=== PATIENT | male | born 1930 | race Caucasian/White ===

== ENCOUNTER 2019-11-29 16:23 | Inpatient (IN) | payer MEDICARE, BC ==
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
[2019-11-29 16:58] LABS: ABS Lymphocytes 0.8 10^3/ul (1.0-4.8); ABS Monocytes 0.6 10^3/ul (0-0.8); ABS Neutrophils 7.5 10^3/ul (1.5-7.7); Eosinophil % 0.1 %; Hematocrit 41 % (42-52); Hemoglobin 14.4 g/dL (14.0-18.0); Lymphocyte % 8.9 %; Mean Corpuscular HGB Conc 35 g/dL (31-36); Mean Corpuscular Hemoglobin 31 pg (27-31); Mean Corpuscular Volume 87 fL (80-94); Mean Platelet Volume 7.5 fL (7.4-10.4); Platelet Count 120 10^3/uL (150-450); Red Cell Distribution Width 14 % (10-15); White Blood Count 8.8 10^3/uL (3.5-10.8)
[2019-11-29 17:26] LABS: ALT 37 U/L (7-52); AST 65 U/L (13-39); Albumin 3.9 g/dL (3.2-5.2); Albumin/Globulin Ratio 1.2 (1-3); Alkaline Phosphatase 139 U/L (34-104); Anion Gap 8 mmol/L (2-11); BUN/Creatinine Ratio 22.6 (8-20); Blood Urea Nitrogen 21 mg/dL (6-24); CO2 Carbon Dioxide 27 mmol/L (22-32); Calcium 9.7 mg/dL (8.6-10.3); Chloride 101 mmol/L (101-111); EGFR African American 92.8 (>60); EGFR Non-African American 76.7 (>60); Globulin 3.3 g/dL (2-4); Glucose 130 mg/dL (70-100); Potassium 3.9 mmol/L (3.5-5.0); Sodium 136 mmol/L (135-145); Total Protein 7.2 g/dL (6.4-8.9)
[2019-11-29 17:36] LABS: Alcohol < 10 mg/dL (<10)
[2019-11-29 17:49] LABS: Troponin I 0.05 ng/mL (<0.03)
[2019-11-29 18:14] LABS: TSH (Thyroid Stimulating Horm) 1.36 mcIU/mL (0.34-5.60)
[2019-11-29] MEDS ORDERED: Ketorolac INJ* 30 MG/ML 1 ML VIAL IV PUSH ONE (18:56)
[2019-11-29] MEDS ORDERED: oxyCODONE/Acetamin 5/325 MG* TAB PO ONE (18:56)
[2019-11-29 19:59] LABS: Urine Appearance Clear; Urine Bilirubin Negative (Negative); Urine Blood Negative (Negative); Urine Color Yellow; Urine Glucose Negative (Negative); Urine Ketones 1+ (Negative); Urine Nitrite Negative (Negative); Urine Protein Negative (Negative); Urine Specific Gravity 1.025 (1.010-1.030); Urine Urobilinogen Negative (Negative)
[2019-11-29 20:55] LABS: Troponin I 0.06 ng/mL (<0.03)
[2019-11-29] MEDS ORDERED: Famotidine TAB* 20 MG PO PRN (21:50)
[2019-11-29] MEDS ORDERED: Meclizine TAB* 12.5 MG PO PRN (21:50)
[2019-11-29] MEDS ORDERED: Enoxaparin(*) 40 MG/0.4 ML SYR SUBCUT SCH (22:00)
--- NOTE | 2019-11-29 23:38 | HP ---
History of Present Illness - History of Present Illness Reason for Visit: Syncope and collapse, Fall History of Present Illness: 89 yo Male with PMHx significant for HTN, Gout, legal blindness presented to day to the ED with CC of Syncope and Fall in the bathroom this AM. He said he knew when he went to the bathroom but can't remember falling but found himself on the floor with pain on the right side. He has no recollection of falling or how long he was there. reported patient on the floor of the bathroom, talking, awake and alert but couldn't ambulate. Did not notice any focal weakness, no foaming in the mouth, no urinary incontinence or saddle anesthesia. Patient only reported right sided pain on the ribs and now in the ED noticed right hand swelling, redness and pain on palpation. Denied chest pain , neck pain, abdominal pain, diaphoresis, nausea vomiting, fever. Said he is compliant with his medications. He also denied headache. CT brain scan no intra- cranial pathology noted. CXR revealed no cardiopulmonary pathology, Right hand X -ray revealed Osteopenia, Osteoarthritis but no acute osseous injury. EKG-Afib with tachycardia at 105 BPM, no ST changes. - Past Medical History Cardiac: HTN COMMUNICATIONS INTERN: Other - Legally blind bilateral eyes Rheumatologic: Gout - Past Surgical History Past Surgical History: Hernia Repair, Other - Pilonidal cyst, Right Ankle surgery - Past Social History Smoke: No Alcohol: Rare Drugs: None Lives: With Family Domestic Violence: Negative Review of Systems - Measurements Intake and Output: Intake and Output Last 24 Hours 11/27/19 11/28/19 11/29/19 11/30/19 06:59 06:59 06:59 06:59 Weight 112.491 kg - Review of Systems Constitutional Symptoms: Positive: Fatigue, Unexplained Falls Negative: Fever Dermatology: Positive: Normal HEENT: Positive: Normal Eyes: Positive: Other - 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) Thyroid: Negative: Cold Intolerance, Sweatiness, Tremor, Palpitations Pulmonary: Positive: Normal Cardiology: Positive: Syncope Negative: Shortness of Breath, Palpitations Gastroenterology: Positive: Normal Genital - Urinary: Positive: Normal Musculoskeletal: Positive: Arthritis Endocrinology: Negative: Diabetes Mellitus, Hyperglycemia, Polydipsia, Polyuria Hematologic/Lymphatic: Negative: Anemia Neurology: Negative: Headache, Change in Speech Psychiatry: Positive: Normal Objective Active Medications: Aspirin (Aspirin Tab*) 325 mg PO DAILY [facility] Enoxaparin Sodium (Lovenox(*)) 40 mg SUBCUT Q24H [facility] Famotidine (Pepcid Tab*) 20 mg PO DAILY PRN; Protocol PRN Reason: INDIGESTION Losartan Potassium (Cozaar Tab*) 25 mg PO DAILY [facility] Meclizine HCl (Antivert Tab*) 12.5 mg PO TID PRN PRN Reason: DIZZINESS Metoprolol Succinate (Toprol Xl Tab*) 12.5 mg PO DAILY [facility] Terazosin HCl (Hytrin Cap*) 5 mg PO BEDTIME [facility] Vital Signs - 8 hr 11/29/19 11/29/19 11/29/19 16:28 16:36 16:37 Temperature 99 F Pulse Rate 101 92 102 Respiratory 16 20 13 Rate Blood Pressure 168/99 168/99 (mmHg) O2 Sat by Pulse 96 95 93 Oximetry 11/29/19 11/29/19 11/29/19 17:32 17:40 17:59 Temperature Pulse Rate 105 87 73 Respiratory Rate Blood Pressure 161/103 143/97 (mmHg) O2 Sat by Pulse 93 93 95 Oximetry 11/29/19 11/29/19 11/29/19 18:00 18:29 18:58 Temperature Pulse Rate 79 87 97 Respiratory Rate Blood Pressure 143/80 147/101 (mmHg) O2 Sat by Pulse 94 92 94 Oximetry 11/29/19 11/29/19 11/29/19 19:00 19:28 19:37 Temperature Pulse Rate 100 101 Respiratory 21 16 Rate Blood Pressure 148/82 (mmHg) O2 Sat by Pulse 93 91 Oximetry 11/29/19 11/29/19 11/29/19 19:58 20:01 20:28 Temperature Pulse Rate Respiratory 18 13 18 Rate Blood Pressure 132/91 110/72 (mmHg) O2 Sat by Pulse Oximetry 11/29/19 11/29/19 11/29/19 20:58 21:01 21:08 Temperature Pulse Rate Respiratory 18 9 15 Rate Blood Pressure 159/114 121/76 (mmHg) O2 Sat by Pulse Oximetry 11/29/19 11/29/19 11/29/19 21:28 21:58 22:00 Temperature Pulse Rate Respiratory 26 17 17 Rate Blood Pressure 106/70 112/75 (mmHg) O2 Sat by Pulse Oximetry 11/29/19 11/29/19 11/29/19 22:10 22:12 22:28 Temperature 98.4 F Pulse Rate 68 67 Respiratory 16 17 23 Rate Blood Pressure 125/66 125/66 114/66 (mmHg) O2 Sat by Pulse 93 96 Oximetry 11/29/19 11/29/19 22:58 23:00 Temperature 98.4 F Pulse Rate 68 Respiratory 18 17 Rate Blood Pressure 104/75 125/66 (mmHg) O2 Sat by Pulse 93 Oximetry Eyes: No Scleral Icterus Ears/Nose/Mouth/Throat: Clear Oropharnyx, Mucous Membranes Moist Neck: NL Appearance and Movements; NL JVP, Trachea Midline, No Thyroid Enlargement, Masses Respiratory: Symmetrical Chest Expansion and Respiratory Effort, Clear to Auscultation Cardiovascular: NL Sounds; No Murmurs; No JVD, RRR, No Edema Abdominal: NL Sounds; No Tenderness; No Distention, No Hepatosplenomegaly Lymphatic: No Cervical Adenopathy Extremities: No Clubbing, Cyanosis Skin: No Rash or Ulcers Neurological: Alert and Oriented x 3, NL Muscle Strength and Tone Result Diagrams: 11/30/19 05:32 11/29/19 16:49 Assess/Plan/Problems-Billing Assessment: 89 yo Male with PMHx significant for HTN, Gout and legally blind presented with: - Patient Problems (1) Syncope and collapse Current Visit: Yes Status: Acute Code(s): R55 - SYNCOPE AND COLLAPSE SNOMED Code(s): 594520244 Comment: Admit to medicine--Telemonitor Monitor and follow up cardiac enymes. Initial trops elevated at 0.05. patient reported no chest pain. EKG showed Afib with HR of 105, no ST changes. Will order Echocardiogram to evaluate further. Nitropaste for chest as needed. Cardiology consult. FU AM labs (2) Fall Current Visit: Yes Status: Acute Comment: Fall precaution. PT eval (3) HTN (hypertension), benign Current Visit: Yes Status: Acute Code(s): I10 - ESSENTIAL (PRIMARY) HYPERTENSION SNOMED Code(s): 39285091 Comment: c/w Home meds Metoprolol, Losartan with holding parameters (4) Legal blindness Current Visit: Yes Status: Acute Code(s): H54.8 - LEGAL BLINDNESS, DEFINED IN [place] SNOMED Code(s): 11385300 Comment: Follow up out patient ophthalmology (5) DVT prophylaxis Current Visit: Yes Status: Acute Code(s): Z29.9 - ENCOUNTER FOR PROPHYLACTIC MEASURES, UNSPECIFIED SNOMED Code(s): 950790762 Comment: Alfredo (6) Full code status Current Visit: Yes Status: Acute Code(s): Z78.9 - OTHER SPECIFIED HEALTH STATUS SNOMED Code(s): 418802346
[2019-11-30] MEDS: oxyCODONE/Acetamin 5/325 MG* TAB PO PRN ×2 (00:11→09:22)
[2019-11-30 05:39] LABS: ABS Eosinophils 0.2 10^3/ul (0-0.6); ABS Lymphocytes 1.1 10^3/ul (1.0-4.8); ABS Monocytes 0.5 10^3/ul (0-0.8); ABS Neutrophils 4.9 10^3/ul (1.5-7.7); Eosinophil % 2.6 %; Hematocrit 39 % (42-52); Hemoglobin 13.2 g/dL (14.0-18.0); Lymphocyte % 16.6 %; Mean Corpuscular HGB Conc 34 g/dL (31-36); Mean Corpuscular Hemoglobin 30 pg (27-31); Mean Corpuscular Volume 88 fL (80-94); Mean Platelet Volume 7.4 fL (7.4-10.4); Platelet Count 115 10^3/uL (150-450); Red Blood Count 4.37 10^6 /uL (4.18-5.48); Red Cell Distribution Width 15 % (10-15); White Blood Count 6.7 10^3/uL (3.5-10.8)
[2019-11-30 06:00] LABS: Magnesium 2.1 mg/dL (1.9-2.7)
[2019-11-30 06:08] LABS: Troponin I 0.05 ng/mL (<0.03)
[2019-11-30] MEDS ORDERED: Aspirin TAB* 325 MG PO SCH (09:00)
[2019-11-30] MEDS ORDERED: Influenza VAC *QUAD* 2019-20* 0.5 ML SYRINGE IM ONE (09:00)
[2019-11-30] MEDS: Metoprolol Succinate XL TAB* 25 MG PO SCH (09:18)
[2019-11-30] MEDS: Losartan TAB* 25 MG PO SCH (09:22)
[2019-11-30] MEDS ORDERED: Perflutren Lipid Microsphere* 3 ML VIAL ONE (09:49)
--- NOTE | 2019-11-30 11:04 | ECHO ---
*[facility]* [place] [address] Fax #: [phone] Transthoracic Echocardiogram Patient: Marcelo Diane : 1930 Study Date: 11/30/2019 Age: 89 Gender: M HR: 82 bpm Height: 70 in /177.8 cm BSA: 2.29 m^2 Weight: 249.5 lb /113.4 kg BMI: 35.9 kg/m^2 *Recruiter: * Sugey Sánchez [facility] *Referring Physician: * Ganesh Abrams *Reading Physician: * Ping Foote MD Indications: Syncope. History: Risk factors: Hypertension. Blindness. Conclusions Summary: - Left ventricle: The cavity size is at the lower limits of normal. Wall thickness is mildly increased. Systolic function is normal. The estimated ejection fraction is 60-65%. Doppler parameters are consistent with abnormal left ventricular relaxation (grade 1 diastolic dysfunction). - Right ventricle: The cavity size is dilated on apical measurments. Systolic function is normal. - Mitral valve: There is trace regurgitation. - Aortic valve: The valve is trileaflet. The leaflets are mildly thickened and mildly calcified. - Tricuspid valve: There is trace regurgitation. - Aorta: The ascending aorta internal dimension in the A-P direction, maximal systolic dimension is 4.0 cm. - Ascending aorta: The ascending aorta is mildly dilated. - Pulmonary arteries: Systolic pressure can not be accurately estimated. - No prior echocardiogram to compare. Study data: Transthoracic echocardiogram. Procedure: Transthoracic echocardiography was performed. Image quality was suboptimal. The study was technically limited due to restricted patient mobility and body habitus. Intravenous Definity , 2 mlswas administered. Complete 2D, spectral Doppler, and color flow Doppler. Location: Bedside. Patient status: Inpatient. Patient room number: 450-02. Rhythm: Normal sinus rhythm with PAC's. Findings Left ventricle: The cavity size is at the lower limits of normal. Wall thickness is mildly increased. Systolic function is normal. The estimated ejection fraction is 60-65%. Wall motion is normal; there are no regional wall motion abnormalities. Doppler parameters are consistent with abnormal left ventricular relaxation (grade 1 diastolic dysfunction). Right ventricle: The cavity size is dilated. Systolic function is normal. Left atrium: The atrium is mildly dilated. Right atrium: The atrium is normal in size. Mitral valve: The leaflets are mildly thickened. There is no evidence of stenosis. There is trace regurgitation. Aortic valve: The valve is trileaflet. The leaflets are mildly thickened and mildly calcified. Normal valve function. Cusp separation is normal. There is no evidence of stenosis. There is no significant regurgitation. Tricuspid valve: The leaflets are normal thickness. There is no evidence of stenosis. There is trace regurgitation. Pulmonic valve: The leaflets are normal thickness. There is no evidence of stenosis. There is trace to mild regurgitation. Aorta: Aortic root: The aortic root is mildly dilated. Ascending aorta: The ascending aorta is mildly dilated. Aortic arch: The aortic arch is appears normal. Pericardium: A prominent pericardial fat pad is present. There is no significant pericardial effusion. Pulmonary arteries: The main pulmonary artery is normal-sized. Systolic pressure can not be accurately estimated. Systemic veins: Inferior vena cava: Poorly visualized. Measurements Left ventricle Value Ref Right atrium continued Value Ref NAVDEEP, LAX (L) 4.1 cm 4.2 - 5.8 ML dim, ES, A4C 4.0 cm 2.6 - 4.4 ESD, LAX 2.5 cm 2.5 - 4.0 Estimated RAP 8 mm Hg --------- FS, LAX 39 % 25 - 43 PW, ED, LAX (H) 1.1 cm 0.6 - 1.0 Aortic valve Value Ref FS 39 % 25 - 43 Latha diam, ED 2.5 cm --------- Mid-wall FS 14 % Peak v, S 1.4 m/sec --------- PW, ED (H) 1.1 cm 0.6 - 1.0 VTI, S 24.5 cm --------- E', lat latha, TDI (L) 6.6 cm/sec >=10.0 Mean grad, S 4.0 mm Hg -- ------- E/e', lat latha, 11 Peak grad, S 7.0 mm Hg ----- ---- TDI LVOT/AV, VTI ratio 0.73 --------- E', med latha, TDI (L) 5.5 cm/sec >=7.0 E/e', med latha, 13 Mitral valve Value Ref TDI Peak E 0.7 m/sec --------- E', avg, TDI 6.1 cm/sec Peak A 1.22 m/sec ----- ---- E/e', avg, TDI 12 <=14 Decel time 254 ms -- ------- Peak E/A ratio 0.6 --------- LVOT Value Ref Peak jagdeep, S 0.99 m/sec Pulmonic valve Value Ref VTI, S 18.0 cm Peak v, S 1.13 m/sec --------- Mean grad, S 2 mm Hg Peak grad, S 5.0 mm Hg --------- NC v, ED 1.13 m/sec --------- Ventricular septum Value Ref NC grad, ED 5 mm Hg --------- IVS, ED (H) 1.2 cm 0.6 - 1.0 Aortic root Value Ref Right ventricle Value Ref Root diam 3.8 cm <4.4 NAVDEEP, LAX 3.3 cm NAVDEEP minor ax, A4C (H) 4.5 cm 1.9 - 3.5 Ascending aorta Value Ref mid AAo AP diam, S 4.0 cm --------- Left atrium Value Ref Aortic arch Value Ref AP dim, ES 3.60 cm 3.00 - Arch diam 2.7 cm --------- 4.00 ML dim, A4C 5.0 cm Decending aorta Value Ref SI dim, A4C 6.6 cm Lindsay peak jagdeep 0.6 m/sec --------- Vol/bsa, ES, 1-p 37 ml/m^2 12 - 37 A4C Vol/bsa, ES, A/L 28 ml/m^2 16 - 34 Right atrium Value Ref SI dim, ES 5.1 cm 3.4 - 5.3 Legend: (L) and (H) ashley values outside specified reference range. Prepared and electronically signed by Ping Foote MD 11/30/2019 11:04
[2019-11-30 12:51] LABS: Troponin I 0.04 ng/mL (<0.03)
[2019-11-30] MEDS: Acetaminophen TAB* 325 MG PO SCH ×2 (15:56→23:44)
--- NOTE | 2019-11-30 18:43 | PN ---
Subjective Date of Service: 11/30/19 Interval History: Sitting up in chair, NAD. Guarding R side. C/o pain to R side/flank area. Denies any headache, CP, SOB, abdominal discomfort, difficulty urinating, unusual numbness/tingling. Objective Active Medications: Acetaminophen (Tylenol Tab*) 975 mg PO Q8H [facility] Last Admin: 11/30/19 15:56 Dose: 975 mg Aspirin (Aspirin Tab*) 325 mg PO DAILY [facility] Last Admin: 11/30/19 09:22 Dose: 325 mg Enoxaparin Sodium (Lovenox(*)) 40 mg SUBCUT Q24H [facility] Last Admin: 11/30/19 00:11 Dose: 40 mg Famotidine (Pepcid Tab*) 20 mg PO DAILY PRN; Protocol PRN Reason: INDIGESTION Losartan Potassium (Cozaar Tab*) 25 mg PO DAILY [facility] Last Admin: 11/30/19 09:22 Dose: 25 mg Meclizine HCl (Antivert Tab*) 12.5 mg PO TID PRN PRN Reason: DIZZINESS Metoprolol Succinate (Toprol Xl Tab*) 12.5 mg PO DAILY [facility] Last Admin: 11/30/19 09:18 Dose: 12.5 mg Oxycodone HCl (Roxycodone Tab*) 5 mg PO Q4H PRN PRN Reason: PAIN - SEVERE Terazosin HCl (Hytrin Cap*) 5 mg PO BEDTIME [facility] Vital Signs - 8 hr 11/30/19 11/30/19 11/30/19 11:15 11:23 15:15 Temperature 98.4 F 98.5 F Pulse Rate 80 87 Respiratory 20 16 20 Rate Blood Pressure 110/60 101/59 (mmHg) O2 Sat by Pulse 93 92 Oximetry Oxygen Devices in Use Now: None Appearance: sitting up in chair, guarded Eyes: No Scleral Icterus, - - PERRL Ears/Nose/Mouth/Throat: Mucous Membranes Moist Respiratory: Symmetrical Chest Expansion and Respiratory Effort, Clear to Auscultation Cardiovascular: - - HR irregular, S1/S2 present, no murmurs, rubs or gallops noted Abdominal: - - BS throughout, abdomen large distended, non-tender to palpation Extremities: - - 1+ edema BLE Neurological: Alert and Oriented x 3 Nutrition: Taking PO's Result Diagrams: 12/01/19 05:15 12/01/19 05:15 Assess/Plan/Problems-Billing Assessment: 89 yo Male with PMHx significant for HTN, Gout and legally blind presented with c/o syncope and fall. Does not remember passing out, found on floor by his . - Patient Problems (1) Syncope and collapse Current Visit: Yes Status: Acute Code(s): R55 - SYNCOPE AND COLLAPSE SNOMED Code(s): 859272997 Comment: Admit to medicine--Telemonitor. Troponin trended downward. EKG showed Afib with HR of 105, no ST changes. No available documented hx of afib. Echo shows grade 1 diastolic dysfunction but normal systolic function and EF 60- 65% Syncopal episode likely in relation to AFib vs unspecified reflex syncope Continue to monitor (2) Elevated troponin Current Visit: Yes Status: Acute Code(s): R79.89 - OTHER SPECIFIED ABNORMAL FINDINGS OF BLOOD CHEMISTRY SNOMED Code(s): 142007539 Comment: Troponins trended down with last value 0.04. No prior values for comparison. Spoke to pt about Performing chemical nuclear stress and potential further interventions if this test is positive, pt agreed to proceed. - chemical nuclear stress ordered for 11/30 (3) Atrial fibrillation Current Visit: Yes Status: Acute Code(s): I48.91 - UNSPECIFIED ATRIAL FIBRILLATION SNOMED Code(s): 42891750 Comment: HAS-BLED score 2 - moderate risk [id number] score 3 points - moderate to high risk No known hx bleeding/clotting disorders Start eliquis 5mg PO BID tonight (4) HTN (hypertension), benign Current Visit: Yes Status: Acute Code(s): I10 - ESSENTIAL (PRIMARY) HYPERTENSION SNOMED Code(s): 89217747 Comment: c/w Home meds Metoprolol, Losartan with holding parameters (5) Legal blindness Current Visit: Yes Status: Acute Code(s): H54.8 - LEGAL BLINDNESS, DEFINED IN [place] SNOMED Code(s): 77431923 Comment: Follow up out patient ophthalmology (6) Elevated liver enzymes Current Visit: Yes Status: Acute Code(s): R74.8 - ABNORMAL LEVELS OF OTHER SERUM ENZYMES SNOMED Code(s): 559213955 Comment: and elevated bilirubin. It is reasonable to suspect fatty liver as a causative factor. Pt can follow up outpatient about these findings. (7) Full code status Current Visit: Yes Status: Acute Code(s): Z78.9 - OTHER SPECIFIED HEALTH STATUS SNOMED Code(s): 653325765 (8) DVT prophylaxis Current Visit: Yes Status: Acute Code(s): Z29.9 - ENCOUNTER FOR PROPHYLACTIC MEASURES, UNSPECIFIED SNOMED Code(s): 000393405 Comment: stop lovenox start eliquis Status and Disposition: status: stable disposition: 4S Attending: Daisy Wong
[2019-11-30] MEDS: oxyCODONE TAB* 5 MG TAB PO PRN (21:32)
[2019-11-30] MEDS: Apixaban* 5 MG TAB PO SCH (21:32)
[2019-11-30] MEDS: Terazosin CAP* 5 MG PO SCH (21:33)
[2019-11-30] MEDS: guaiFENesin 100 mg/5 ml LIQ unit dose cup PO PRN (22:35)
[2019-12-01] MEDS ORDERED: NS 0.9% 500 ML* 500 ML IV ONE (00:01)
[2019-12-01] MEDS: oxyCODONE TAB* 5 MG TAB PO PRN ×3 (05:13→19:34)
[2019-12-01 05:35] LABS: ABS Eosinophils 0.1 10^3/ul (0-0.6); ABS Lymphocytes 0.9 10^3/ul (1.0-4.8); ABS Monocytes 0.5 10^3/ul (0-0.8); ABS Neutrophils 5.3 10^3/ul (1.5-7.7); Eosinophil % 0.9 %; Hematocrit 37 % (42-52); Hemoglobin 12.9 g/dL (14.0-18.0); Lymphocyte % 13.9 %; Mean Corpuscular HGB Conc 35 g/dL (31-36); Mean Corpuscular Hemoglobin 31 pg (27-31); Mean Corpuscular Volume 88 fL (80-94); Mean Platelet Volume 7.8 fL (7.4-10.4); Platelet Count 105 10^3/uL (150-450); Red Blood Count 4.24 10^6 /uL (4.18-5.48); Red Cell Distribution Width 14 % (10-15); White Blood Count 6.8 10^3/uL (3.5-10.8)
[2019-12-01 05:51] LABS: BUN/Creatinine Ratio 33.3 (8-20); Calcium 8.4 mg/dL (8.6-10.3); EGFR African American 80.7 (>60); EGFR Non-African American 66.7 (>60); Potassium 3.9 mmol/L (3.5-5.0)
[2019-12-01] MEDS: Acetaminophen TAB* 325 MG PO SCH ×3 (07:35→21:47)
[2019-12-01] MEDS: guaiFENesin 100 mg/5 ml LIQ unit dose cup PO PRN ×4 (07:36→21:51)
--- NOTE | 2019-12-01 08:57 | PN ---
Subjective Date of Service: 12/01/19 Interval History: Spoke to pt again about stress testing and he wishes to proceed. States pain to R side and he believes that the scheduled tylenol is helping. Currently denies any fever, chills, headache, CP, SOB, N/V/D, difficulty urinating, numbness/ tingling. Objective Active Medications: Acetaminophen (Tylenol Tab*) 975 mg PO Q8H [facility] Last Admin: 12/01/19 07:35 Dose: 975 mg Apixaban (Eliquis*) 5 mg PO BID [facility] Last Admin: 11/30/19 21:32 Dose: 5 mg Famotidine (Pepcid Tab*) 20 mg PO DAILY PRN; Protocol PRN Reason: INDIGESTION Guaifenesin (Robitussin 100 Mg/5ml Liq) 5 ml PO Q4H PRN PRN Reason: COUGH Last Admin: 12/01/19 07:36 Dose: 5 ml Losartan Potassium (Cozaar Tab*) 25 mg PO DAILY [facility] Last Admin: 11/30/19 09:22 Dose: 25 mg Meclizine HCl (Antivert Tab*) 12.5 mg PO TID PRN PRN Reason: DIZZINESS Metoprolol Succinate (Toprol Xl Tab*) 12.5 mg PO DAILY [facility] Last Admin: 11/30/19 09:18 Dose: 12.5 mg Oxycodone HCl (Roxycodone Tab*) 5 mg PO Q4H PRN PRN Reason: PAIN - SEVERE Last Admin: 12/01/19 05:13 Dose: 5 mg Terazosin HCl (Hytrin Cap*) 5 mg PO BEDTIME [facility] Last Admin: 11/30/19 21:33 Dose: 5 mg Vital Signs - 8 hr 12/01/19 12/01/19 12/01/19 02:28 05:13 08:09 Temperature 97.8 F Pulse Rate 96 Respiratory 20 16 20 Rate Blood Pressure 127/65 (mmHg) O2 Sat by Pulse 94 Oximetry Oxygen Devices in Use Now: None Appearance: Laying in bed, NAD, guarding R side Eyes: No Scleral Icterus Ears/Nose/Mouth/Throat: Clear Oropharnyx Respiratory: Symmetrical Chest Expansion and Respiratory Effort, Clear to Auscultation - diminished to BLL Cardiovascular: - - Rate irregular, S1/S2 present, no murmurs, rubs or gallops Abdominal: - - Normoactive BS throuhgout, abdomen large, round, SNT Extremities: - - trace edema BLE, 1+ pitting edema bilateral feet. 1+ pitting edema R hand to bruised area Skin: - - Bruising to R hand and forearm, slightly darkened discoloration of bilateral lower calves Neurological: Alert and Oriented x 3 - showed disorientation when awoken this morning but quickly reoriented, aware of person, place, time, situation, NL Sensation Nutrition: - - NPO awaiting stress testing Result Diagrams: 12/01/19 05:15 12/01/19 05:15 Assess/Plan/Problems-Billing Assessment: 89 yo Male with PMHx significant for HTN, Gout and legally blind presented with c/o syncope and fall. Does not remember passing out, found on floor by his . - Patient Problems (1) Syncope and collapse Current Visit: Yes Status: Acute Code(s): R55 - SYNCOPE AND COLLAPSE SNOMED Code(s): 499489461 Comment: Admit to medicine--Telemonitor. Troponin trended downward. EKG showed Afib with HR of 105, no ST changes. No available documented hx of afib. Echo shows grade 1 diastolic dysfunction but normal systolic function and EF 60- 65% Syncopal episode likely in relation to AFib vs unspecified reflex syncope Continue to monitor Pain medication currently scheduled tylenol with oxy 5mg q6hr PRN (2) Elevated troponin Current Visit: Yes Status: Acute Code(s): R79.89 - OTHER SPECIFIED ABNORMAL FINDINGS OF BLOOD CHEMISTRY SNOMED Code(s): 267648393 Comment: Troponins trended down with last value 0.04. No prior values for comparison. Spoke to pt about Performing chemical nuclear stress and potential further interventions if this test is positive, pt agreed to proceed. - chemical nuclear stress ordered for 11/30 - low risk (3) Atrial fibrillation Current Visit: Yes Status: Acute Code(s): I48.91 - UNSPECIFIED ATRIAL FIBRILLATION SNOMED Code(s): 43049513 Comment: HAS-BLED score 2 - moderate risk [id number] score 3 points - moderate to high risk No known hx bleeding/clotting disorders Started on eliquis Noted to be in sinus arrhythmia today with PACs, recently had pauses of approximately 2seconds each - it is reasonable to d/c BB as risks seemingly outweigh benefits at this time and pt was on a lower dosage - EKG ordered - shows sinus arrhythmia with no ST elevations or depressions - if he continues to have pauses or any other irregular activity after the BB wares off then we can get cardiology involved - continue to monitor (4) HTN (hypertension), benign Current Visit: Yes Status: Acute Code(s): I10 - ESSENTIAL (PRIMARY) HYPERTENSION SNOMED Code(s): 94132914 Comment: c/w Losartan with holding parameters BB has been d/c Continue to monitor BPs (5) Legal blindness Current Visit: Yes Status: Acute Code(s): H54.8 - LEGAL BLINDNESS, DEFINED IN [place] SNOMED Code(s): 37376482 Comment: Per report from pt's , the pt had what 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 It is reasonable to suspect fatty liver as a causative factor. Pt can follow up outpatient about these findings. (7) Anemia Current Visit: Yes Status: Acute Code(s): D64.9 - ANEMIA, UNSPECIFIED SNOMED Code(s): 195063645 Comment: slight drop in HH to 12.9/37, was started on eliquis 11/30 Will continue to trend (8) Full code status Current Visit: Yes Status: Acute Code(s): Z78.9 - OTHER SPECIFIED HEALTH STATUS SNOMED Code(s): 150143669 (9) DVT prophylaxis Current Visit: Yes Status: Acute Code(s): Z29.9 - ENCOUNTER FOR PROPHYLACTIC MEASURES, UNSPECIFIED SNOMED Code(s): 804325718 Comment: stop lovenox start eliquis Status and Disposition: status: stable disposition: 4S Attending: Lamberto Garner
[2019-12-01] MEDS: Losartan TAB* 25 MG PO SCH (09:04)
[2019-12-01] MEDS: Metoprolol Succinate XL TAB* 25 MG PO SCH (09:04)
[2019-12-01] MEDS: Apixaban* 5 MG TAB PO SCH ×2 (09:04→21:51)
[2019-12-01] MEDS ORDERED: Regadenoson* 0.4 MG/5 ML SYRINGE ONE (10:53)
[2019-12-01] MEDS ORDERED: Senna TAB 8.6 mg* TAB PO PRN (12:10)
[2019-12-01] MEDS ORDERED: Magnesium Hydroxide LIQ* 30 ML UDC PO ONE (12:10)
[2019-12-01] MEDS ORDERED: Docusate CAP* 100 MG PO PRN (12:10)
[2019-12-01] MEDS ORDERED: Magnesium Hydroxide LIQ* 30 ML UDC PO PRN (12:11)
[2019-12-01] MEDS: Terazosin CAP* 5 MG PO SCH (21:47)
[2019-12-02] MEDS: guaiFENesin 100 mg/5 ml LIQ unit dose cup PO PRN ×3 (03:04→14:26)
[2019-12-02] MEDS: oxyCODONE TAB* 5 MG TAB PO PRN ×2 (03:04→14:26)
[2019-12-02 06:14] LABS: Hematocrit 37 % (42-52); Hemoglobin 12.6 g/dL (14.0-18.0); Mean Corpuscular HGB Conc 34 g/dL (31-36); Mean Corpuscular Hemoglobin 31 pg (27-31); Mean Corpuscular Volume 89 fL (80-94); Mean Platelet Volume 7.9 fL (7.4-10.4); Platelet Count 108 10^3/uL (150-450); Red Blood Count 4.13 10^6 /uL (4.18-5.48); Red Cell Distribution Width 14 % (10-15); White Blood Count 6.2 10^3/uL (3.5-10.8)
[2019-12-02] MEDS: Losartan TAB* 25 MG PO SCH (07:56)
[2019-12-02] MEDS: Acetaminophen TAB* 325 MG PO SCH ×2 (07:56→13:03)
[2019-12-02] MEDS: Apixaban* 5 MG TAB PO SCH (07:56)
[2019-12-02 12:06] VITALS: BP 100/47
--- NOTE | 2019-12-02 13:28 | CONSULT ---
Subjective Date of Service: 12/02/19 Interval History: Admission Date: 11/29/19 Consult 12/02/2019 Service: Hospitalist CC: Fall vs. syncope Reason for consult: EKG findings HPI 89 year old man with a history as below who was found awake in the middle of the night on bathroom floor in pain. He is legally blind. He does not remember how he got there. It is clear if he syncopized. His initial EKG was felt to be atrial fibrillation and he was started on eliquis and metoprolol. On close review, it shows sinus tachycardia with PAC's. He had some benign appearing < 1.5 second SA node exit block on telemetry. He has broke ribs and this painful. He is otherwise currently asymptomatic. He plans to go to a rehab facility. Pmhx: HTN Gout legal blindness - Past Surgical History Past Surgical History: Hernia Repair, Other - Pilonidal cyst, Right Ankle surgery - Past Social History Smoke: No Alcohol: Rare Drugs: None Lives: With Family Allergies Allergy/AdvReac Type Severity Reaction Status Date / Time Penicillins Allergy Unknown Verified 11/29/19 17:28 Reaction Details Medications Active Medications: Acetaminophen (Tylenol Tab*) 975 mg PO Q8H [facility] Last Admin: 12/02/19 13:03 Dose: 975 mg Bisacodyl (Dulcolax Supp*) 10 mg LA ONCE PRN PRN Reason: CONSTIPATION Last Admin: 12/02/19 13:03 Dose: 10 mg Docusate Sodium (Colace Cap*) 100 mg PO BID PRN PRN Reason: CONSTIPATION Last Admin: 12/02/19 07:56 Dose: 100 mg Famotidine (Pepcid Tab*) 20 mg PO DAILY PRN; Protocol PRN Reason: INDIGESTION Guaifenesin (Robitussin 100 Mg/5ml Liq) 5 ml PO Q4H PRN PRN Reason: COUGH Last Admin: 12/02/19 07:55 Dose: 5 ml Losartan Potassium (Cozaar Tab*) 25 mg PO DAILY [facility] Last Admin: 12/02/19 07:56 Dose: 25 mg Magnesium Hydroxide (Milk Of Magnesia Liq*) 30 ml PO BID PRN PRN Reason: CONSTIPATION Last Admin: 12/02/19 07:56 Dose: 30 ml Meclizine HCl (Antivert Tab*) 12.5 mg PO TID PRN PRN Reason: DIZZINESS Oxycodone HCl (Roxycodone Tab*) 5 mg PO Q6H PRN PRN Reason: PAIN - SEVERE Last Admin: 12/02/19 03:04 Dose: 5 mg Senna (Senokot 8.6 Mg Tab*) 1 tab PO BEDTIME PRN PRN Reason: CONSTIPATION Terazosin HCl (Hytrin Cap*) 5 mg PO BEDTIME [facility] Last Admin: 12/01/19 21:47 Dose: 5 mg Home Medications: Allopurinol TAB* [Zyloprim 100 MG TAB*] 100 mg PO DAILY 11/29/19 [History Confirmed 11/29/19] Losartan TAB* [Cozaar TAB*] 25 mg PO DAILY 11/29/19 [History Confirmed 11/29/19] Meclizine TAB* [Antivert 12.5 TAB*] 12.5 mg PO TID PRN 11/29/19 [History Confirmed 11/29/19] Ranitidine TAB (NF) [Zantac TAB (NF)] 150 mg PO DAILY PRN 11/29/19 [History Confirmed 11/29/19] Terazosin CAP* [Hytrin CAP 5 MG*] 5 mg PO BEDTIME 11/29/19 [History Confirmed ] Vit C/E/Zn/Coppr/Lutein/Zeaxan [Preservision Areds 2 Softgel] 1 cap PO DAILY 12/15 [History Confirmed 11/29/19] Acetaminophen TAB* [Tylenol TAB*] 975 mg PO Q8H tab 12/02/19 [Rx] Docusate CAP* [Colace Cap*] 100 mg PO BID PRN cap 12/02/19 [Rx] Magnesium Hydroxide LIQ* [Milk of Magnesia LIQ*] 30 ml PO BID PRN [facility] 12/02/19 [Rx] Senna TAB 8.6 mg* [Senokot 8.6 mg TAB*] 1 tab PO BEDTIME PRN tab 12/02/19 [Rx] guaiFENesin 100 mg/5 ml LIQ [Robitussin 100 mg/5ml LIQ] 5 ml PO Q4H PRN [facility] 03/17 [Rx] oxyCODONE TAB* [Roxycodone TAB 5 mg*] 5 mg PO Q6H PRN tab 12/02/19 [Rx] Review of Systems - Measurements Intake and Output: Intake and Output Last 24 Hours 11/30/19 12/01/19 12/02/19 12/03/19 06:59 06:59 06:59 06:59 Intake Total 0 1340 1120 120 Output Total 600 Balance 0 1340 520 120 Weight 245 lb 4.8 oz Intake: IV Fluids 500 500 NS (0.9%) 500 IVPB 500 NS (0.9%) 500 Oral 0 840 120 120 Output: Urine 600 Other: Estimated Void Medium - Review of Systems Constitutional Symptoms: Negative: Weight Gain, Weight Loss, Fever, Night Sweats Dermatology: Negative: Rash, Skin Lesions HEENT: Negative: Change in Hearing, Vertigo Eyes: Positive: Other Negative: Change in Vision Thyroid: Positive: Normal Negative: Heat Intolerance, Palpitations, Weight Loss, Weight Gain Pulmonary: Negative: Cough, Sputum, Respiratory Distress, Shortness of Breath Cardiology: Negative: Palpitations, Edema, Paroxysmal Nocturnal Dyspnea, Orthopnea Gastroenterology: Negative: Blood in Stools, Haematemesis, Melena Genital - Urinary: Negative: Dysuria, Hematuria, Nocturia Musculoskeletal: Negative: Joint Pain, Joint Stiffness Endocrinology: Positive: Obesity Negative: Polydipsia, Polyuria Hematologic/Lymphatic: Negative: Use of Anticoagulant, Use of Antiplatelet Drugs Neurology: Negative: Hx of Stroke\TIA, Hx Seizures Psychiatry: Negative: Unusual Anxiety, Suicidal Ideation Allergic/Immunologic: Negative: Hx HIV, Immunocompromise Review of Systems Statement: All other review of systems negative, unless stated above. Objective Vital Signs: Temp Pulse Resp BP Pulse Ox 98.3 F 62 20 100/47 94 12/02/19 12:00 12/02/19 12:00 12/02/19 12:00 12/02/19 12:12/02/19 12:00 Oxygen Devices in Use Now: None Appearance: elderly, not acutely toxic appearing Ears/Nose/Mouth/Throat: Clear Oropharnyx, Mucous Membranes Moist Neck: NL Appearance and Movements; NL JVP, Trachea Midline Respiratory: Symmetrical Chest Expansion and Respiratory Effort, Clear to Auscultation Cardiovascular: NL Sounds; No Murmurs; No JVD, RRR, No Edema Abdominal: NL Sounds; No Tenderness; No Distention Extremities: No Edema Skin: No Rash or Ulcers Neurological: Alert and Oriented x 3 Laboratory Results: 12/02/19 05:28 12/01/19 05:15 APTT 35.4 seconds (26.0-38.0) 11/29/19 16:49 Total Bilirubin 1.50 mg/dL (0.2-1.0) H 11/29/19 16:49 AST 65 U/L (13-39) H 11/29/19 16:49 ALT 37 U/L (7-52) 11/29/19 16:49 Alkaline Phosphatase 139 U/L (34-104) H 11/29/19 16:49 B-Natriuretic Peptide 78 pg/mL (<=100) 11/29/19 16:49 Total Protein 7.2 g/dL (6.4-8.9) 11/29/19 16:49 Albumin 3.9 g/dL (3.2-5.2) 11/29/19 16:49 Globulin 3.3 g/dL (2-4) 11/29/19 16:49 Albumin/Globulin Ratio 1.2 (1-3) 11/29/19 16:49 TSH 1.36 mcIU/mL (0.34-5.60) 11/29/19 16:49 11/29/19 11/29/19 11/30/19 16:49 19:34 05:32 Troponin I 0.05 H* 0.06 H* 0.05 H* 11/30/19 12:08 Troponin I 0.04 H* Diagnostic Imaging: Transthoracic Echocardiogram Study Date: 11/30/2019 Summary: - Left ventricle: The cavity size is at the lower limits of normal. Wall thickness is mildly increased. Systolic function is normal. The estimated ejection fraction is 60-65%. Doppler parameters are consistent with abnormal left ventricular relaxation (grade 1 diastolic dysfunction). - Right ventricle: The cavity size is dilated on apical measurments. Systolic function is normal. - Mitral valve: There is trace regurgitation. - Aortic valve: The valve is trileaflet. The leaflets are mildly thickened and mildly calcified. - Tricuspid valve: There is trace regurgitation. - Aorta: The ascending aorta internal dimension in the A-P direction, maximal systolic dimension is 4.0 cm. - Ascending aorta: The ascending aorta is mildly dilated. - Pulmonary arteries: Systolic pressure can not be accurately estimated. 12/01/2019 stress MPi images reviewed hyperdynamic stress LVEF makes TID likely artifactual appearance of inferoseptal attenuation artifact normal study EKG Data: ekg on admission 11/29/3019 sinus tachycardia with pac's,lafb 12/02/2019: NSR with SA exit block < 1.5 seconds R-R interval, lafb Assessment/Plan Patient with fall vs. syncope. Telemetry >48 hours with no explanatory findings. May have been multifactorial given middle of night bathroom context. No evidence of atrial fibrillation. beta-philipp already discontinued. Recommend to d/c ham (ordered). Will sign off. Please reconsult as needed.
--- NOTE | 2019-12-02 16:24 | DS ---
AMENDED REPORT NOW INCLUDES DESIGNATED COSIGNER - ESIGNED BEFORE ADJUSTMENTS DISCHARGE SUMMARY: DATE OF ADMISSION: 11/29/19 DATE OF DISCHARGE: 12/02/19 ATTENDING PHYSICIAN: Dr. Osorio * (dictated by Silvino Farr NP). PRIMARY CARE PHYSICIAN: The patient is being setup with [facility]. CONSULTING PHYSICIAN: Dr. Morales. PRIMARY DIAGNOSES: 1. Syncope and collapse. 2. Rib fractures. SECONDARY DIAGNOSES: 1. Hypertension. 2. Elevated troponins. 3. Elevated liver enzymes. 4. Mild anemia and thrombocytopenia. 5. Legal blindness. 6. Gout. HISTORY OF PRESENT ILLNESS AND HOSPITAL COURSE: Mr. Diane is an 89-year-old male with past medical history significant for hypertension, gout, and legal blindness. He presented to the emergency department on 11/29/19. Per ED provider report, Mr. Diane presented to the ED via EMS with complaints of right rib cage pain secondary to syncope and fall. The patient reported that he was in the bathroom and subsequently woke on the floor with right rib cage pain. He had no memory of falling. reports that the patient was found on the floor and was awake and talking this time. The patient continued to complain of right rib cage pain. Redness and swelling to the right hand was noted. While in the emergency department, he did have a chest x-ray that showed no active cardiopulmonary disease, a right hand x-ray that showed no acute osseous injury. A CT of the brain that showed no acute intracranial pathology. A ribs x-ray that showed right rib fractures of the fifth, seventh, eighth, and ninth ribs. No pleural effusions or pneumothorax. No pulmonary contusion. He has had an EKG soon after arrival which was thought to show atrial fibrillation with a rate of 105 beats per minute, no ST elevations. The patient has no known history of AFib. He was admitted to the telemetry unit for continuous telemetry monitoring. He has not had any other episodes of syncope or falling. He was noted per telemetry strips on the floor to be in sinus arrhythmia and has remained in sinus arrhythmia since. It is also noted that with his labs which began on the early evening of 11/29/19, he was noted to have elevated troponin levels. Serial troponins showed 0.05, 0.06, 0.05, and 0.04. There are no prior values to compare these to. The patient denied any sort of chest pain during his incident of syncope and collapse. He has continued to deny any chest pain or shortness of breath. The option of doing a chemical nuclear stress test was discussed with him and he agreed to proceed. The result of the stress test showed a low-risk stress test. It did show elevated transient ischemic dilatation of the left ventricle concerning for the presence of coronary artery disease. He also had a transthoracic echocardiogram while here which showed an EF of 60% to 65%, notes normal systolic function. It did show grade 1 diastolic dysfunction of the left ventricle. The patient has otherwise continued to do rather well. He does have a cough that he has noticed since having the rib fractures, for which Robitussin seems to help. He has been receiving scheduled Tylenol with oxy 5 mg q.6 hours p.r.n. He did have an episode of confusion yesterday around the time of the short pause noted on his telemetry strip. His metoprolol which he took at home as well, was stopped yesterday on 12/01/19, he did receive a dose of 12.5 mg XL on the morning of 02/14. Otherwise, his vital signs have remained stable since. Today, he denies any headache, chest pain, shortness of breath, abdominal discomfort, difficulty with urination, unusual numbness or tingling, fevers, chills. He does complain of pain to his right side, believes that this pain is tolerable with the medications he has been receiving and believes that the scheduled Tylenol has been helping to decrease his level of pain. Upon formal cardiology consult the original EKG was read as SR with PACs. STUDIES: CT of the brain showed no acute intracranial pathology. Chronic small vessel ischemic changes. Chest x-ray showed no active cardiopulmonary disease. Right hand x-ray, impression: States osteopenia. Osteoarthritis. No acute osseous injury. If symptoms persist, recommend repeat imaging. Ribs x- ray shows nondisplaced fractures of the right fifth, seventh, eighth, and ninth ribs noted laterally. Negative for pleural effusion or pneumothorax. Negative for pulmonary confusion. Low lung volumes. Right upper quadrant calcifications suggestive of potential cholelithiasis. EKG on 11/29/19 showed SR with PACs without any ST elevations and a rate of 105. 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 It appears that there were a couple short pauses on that EKG. No ST elevations or depressions noted on this second EKG. Transthoracic echocardiogram, summary: Left ventricle: The cavity size is at the lower limits of normal. Wall thickness is mildly increased. Systolic function is normal. Estimated ejection fraction is 60% to 65%. Doppler parameters are consistent with abnormal left ventricular relaxation, grade 1 diastolic dysfunction. Right ventricle: The cavity size is dilated on apical measurements. Systolic function is normal. Mitral valve: There is trace regurgitation. Aortic valve: The valve is trileaflet. The leaflets are mildly thickened and mildly calcified. Tricuspid valve: There is trace regurgitation. Aorta: The ascending aorta internal dimension in the AP direction, maximal systolic dimension is 4.0 cm. Ascending aorta: The ascending aorta is mildly dilated. Pulmonary artery systolic pressure cannot be accurately estimated. No prior echocardiogram to compare. Nuclear Medicine scan: Nuclear cardiac stress test, chemical stress test, impression states limited perfusion exam without CT for attenuation correction, without compelling evidence of a stress-induced ischemia. Elevated transient ischemic dilatation of the left ventricle concerning for presence of coronary artery disease. Normal range of estimated left ventricular ejection fraction and end-diastolic volume. Equivocal inferior wall hypokinesia. Assessment: Low risk based on nuclear assessment. PERTINENT LABORATORY DATA: Serial troponins 0.05, 0.06, 0.05, and 0.04. WBCs 6.2, RBC 4.13, hemoglobin 12.6, hematocrit 37, MCV 89, MCH 31, MCHC 34, RDW 14, platelet count 108. APTT 35.4. Sodium 135, potassium 3.9, BUN 35, creatinine 1.05, estimated GFR 66.7. BUN/creatinine ratio 33.3, calcium 8.4, magnesium 2.0. On arrival, he had a total bilirubin of 1.50, AST 65, ALT 37, alkaline phosphatase 139. Ammonia 40, BNP 78, and a TSH of 1.36. Lactic acid levels are within normal limits. REVIEW OF SYSTEMS: A 10-point review of systems was completed with this patient. Please see HPI for all pertinent positives and negatives. PHYSICAL EXAMINATION: Constitutional: Sitting up in chair, appears to be in no acute distress. Last Vital Signs: Temp 98.9, heart rate 88, respiratory rate 18, O2 sat 93% on room air, BP 138/67. HEENT: Oral cavity clear. Mucous membranes moist. Cardiovascular: Heart rate irregular. S1, S2 present. No murmurs, rubs, or gallops noted. No JVD. Extremities: Trace nonpitting edema right lower extremity. 1+ nonpitting edema left lower extremity. Pedal pulses present 2+ bilaterally. Respiratory: Fine inspiratory crackles noted to left lower lobe. All other lobes clear. Symmetrical expansion and normal effort. GI : Normoactive bowel sounds throughout. Abdomen large, round, nontender to palpation. Skin: Slightly darkened discoloration of bilateral lower shins. Otherwise appears dry and intact. There is some mild bruising noted over the right rib area. Neuro: Alert and oriented x3. Shows mild confusion at times. Able to sense light touch to bilateral feet. Psych: Responds appropriately. DISCHARGE PLAN: 1. Heart-healthy diet. 2. No equipment needs to be sent to [facility] for discharge. 3. Should continue to increase activity level as tolerated and with PT and OT per [facility]. 4. Syncope and collapse. This may have been due to a transient arrhythmia vs hemodynamic instability in relation to medicaitons vs a reflex syncope; however , this has not happened while in the hospital. Metoprolol has been stopped in relation to pauses per cardiac monitoring, also recommended per cardiology. This may have also been a contributing factor to the patient's syncope and collapse. He will continue with PT and OT at [facility]. 5. Rib fractures. It is recommended to continue with acetaminophen 975 mg q.8 hours and oxycodone 5 mg q.6 hours p.r.n. pain. This can be further evaluated by [facility] medical staff. 6. Elevated troponins. No need for further workup at this time, he can f/u outpatient with PCP, is being set up with [facility]. 7. Elevated liver enzymes and total bilirubin. It is very reasonable to assume that this may be in relation to a fatty liver disease. The patient can follow up about this with his primary care provider. 8. Hypertension. The patient's blood pressures have remained stable since his last dose of metoprolol on the morning of 12/01/19. He was noted to have some quite soft pressures on 11/30/19 ranging from 79/50 to 122/56. Again, it is very reasonable to stop his metoprolol dosage. He can continue with the terazosin as he has been and the losartan. This can be further evaluated by [facility] medical staff. If he does continue with any low blood pressures, his medication management may need to be changed. Can f/u with PCP 9. Legal blindness. It was reported by his that the patient had "blood clots behind his eyes." She states this is why he was on aspirin 325 daily. Can continue ASA. This can be followed up by his primary care provider. 10. Mild anemia and mild thrombocytopenia. Levels have slowly trended downward since admission. There are no prior records to compare these to. He can have a followup CBC in 1 week to reevaluate. 11. Gout. Continue allopurinol. 12. Return precautions. The patient should alert [facility] staff or call 911 if he starts to have chest pain or unusual shortness of breath, or any other concerning symptoms that he believes needs immediate attention. All other concerns could be deferred to PCP. MEDICATIONS AT DISCHARGE: 1. Acetaminophen 975 mg p.o. q.8 hours. 2. ASA 325mg po daily. 3. Docusate 100 mg p.o. b.i.d. p.r.n. for constipation. Continue while taking narcotic pain medications. 4. Robitussin 100 mg per 5 mL, 5 mL p.o. q.4 hours p.r.n. cough. 5. Losartan 25 mg p.o. daily. 6. Milk of magnesia 30 mL p.o. b.i.d. p.r.n. constipation. Continue to take while taking narcotic pain medications. 7. Meclizine 12.5 mg p.o. t.i.d. p.r.n. dizziness. 8. Oxycodone 5 mg p.o. q.6 hours p.r.n. pain. 9. Ranitidine 150 mg p.o. daily p.r.n. indigestion. 10. Senna 8.6 mg 1 tab p.o. at bedtime p.r.n. constipation. Continue while he is taking narcotic pain medications. 11. Terazosin 5 mg p.o. at bedtime. 12. Allopurinol 100 mg p.o. daily. 13. PreserVision AREDS 2 soft gels 1 cap p.o. daily. CONDITION AT DISCHARGE: Stable. DISPOSITION: [facility]. TIME SPENT: Approximately 75 minutes was spent on this discharge, with about 30 of that being [id number] with the patient and his for interview, physical exam, and reviewing plan of care and discharge plan. This case has been reviewed by my attending physician, Dr. Osorio, and she agrees with this plan. SILVINO FARR NP [id number]/CPS #: [id number] OSBALDO
== END 2019-12-02 16:10 | DRG 312 ==
LOC: ED 16:23 → MEDTELE 21:14
PROVIDERS: ADMIT Family Medicine; ATTEND Internal Medicine
DX: R55 Syncope and collapse (principal); S22.41XA Multiple fractures of ribs, right side, initial encounter for closed fracture; I10 Essential (primary) hypertension; H54.8 Legal blindness, as defined in USA; I48.91 Unspecified atrial fibrillation; D64.9 Anemia, unspecified; R74.8 Abnormal levels of other serum enzymes; R94.5 Abnormal results of liver function studies; D69.6 Thrombocytopenia, unspecified; M10.9 Gout, unspecified; W18.30XA Fall on same level, unspecified, initial encounter; M19.041 Primary osteoarthritis, right hand; M85.841 Other specified disorders of bone density and structure, right hand; M79.89 Other specified soft tissue disorders; Y92.002 Bathroom of unspecified non-institutional (private) residence as the place of occurrence of the external cause; Z79.82 Long term (current) use of aspirin; Z79.899 Other long term (current) drug therapy
CPT/HCPCS: 36415; 70450; 71046; 78452; 80048; 80053; 80320; 81003; 82140; 83605; 83735; 83880; 84443; 84484; 85025; 85027; 85730; 90686; 93005; 93017; 93306; 96374; 99284; A9270-GY; A9502; C8929; G0480; J1650; J1885; J2785

== ENCOUNTER 2020-02-13 02:31 | Inpatient (IN) ==
[2020-02-13 03:32] LABS: ABS Eosinophils 0.2 10^3/ul (0-0.6); ABS Lymphocytes 0.9 10^3/ul (1.0-4.8); ABS Monocytes 0.5 10^3/ul (0-0.8); Eosinophil % 2.3 %; Hematocrit 41 % (42-52); Hemoglobin 13.8 g/dL (14.0-18.0); Lymphocyte % 13.4 %; Mean Corpuscular HGB Conc 34 g/dL (31-36); Mean Corpuscular Hemoglobin 30 pg (27-31); Mean Corpuscular Volume 88 fL (80-94); Mean Platelet Volume 7.4 fL (7.4-10.4); Platelet Count 157 10^3/uL (150-450); Red Blood Count 4.63 10^6 /uL (4.18-5.48); Red Cell Distribution Width 15 % (10-15); White Blood Count 6.7 10^3/uL (3.5-10.8)
[2020-02-13 03:46] LABS: Alcohol, S < 10 mg/dL (<10)
[2020-02-13 03:48] LABS: ALT 44 U/L (7-52); AST 33 U/L (13-39); Albumin 3.6 g/dL (3.2-5.2); Alkaline Phosphatase 270 U/L (34-104); C Reactive Protein 65.15 mg/L (<8.01); CO2 Carbon Dioxide 19 mmol/L (22-32); Calcium 8.9 mg/dL (8.6-10.3); Chloride 96 mmol/L (101-111); EGFR African American 5.1 (>60); EGFR Non-African American 4.2 (>60); Globulin 3.5 g/dL (2-4); Glucose 80 mg/dL (70-100); Sodium 131 mmol/L (135-145); Total Protein 7.1 g/dL (6.4-8.9)
[2020-02-13 03:49] LABS: Urine Appearance Clear; Urine Bilirubin Negative (Negative); Urine Blood 2+ (Negative); Urine Color Yellow; Urine Glucose Negative (Negative); Urine Ketones Negative (Negative); Urine Nitrite Negative (Negative); Urine Protein Negative (Negative); Urine Specific Gravity 1.009 (1.010-1.030); Urine Urobilinogen Negative (Negative)
[2020-02-13 03:50] LABS: Troponin I 0.01 ng/mL (<0.03)
[2020-02-13 03:52] LABS: Anion Gap 16 mmol/L (2-11); Potassium 7.5 mmol/L (3.5-5.0)
[2020-02-13 03:53] LABS: Urine Bacteria Absent (Absent); Urine Red Blood Cell 3+(>10/hpf) (Absent); Urine White Blood Cell Trace(0-5/hpf) (Absent)
[2020-02-13] MEDS ORDERED: Dextrose 50% Syringe 50 ml 25 GM/50 ML SYRINGE IV PUSH ONE ×2 (03:54→05:24)
[2020-02-13] MEDS ORDERED: Calcium Gluconate 1 GM/10 ML VIAL (in Pyxis) IV PUSH ONE (03:56)
[2020-02-13 04:02] LABS: TSH (Thyroid Stimulating Horm) 2.94 mcIU/mL (0.34-5.60)
[2020-02-13] MEDS ORDERED: Furosemide 40 mg/4 ml IV VIAL IV SLOW PU ONE (04:03)
[2020-02-13 04:13] LABS: BUN/Creatinine Ratio 13.1 (8-20); Blood Urea Nitrogen 151 mg/dL (6-24)
[2020-02-13] MEDS: Patiromer POWDER 8.4 GM PAK PO SCH (04:50)
[2020-02-13] MEDS ORDERED: Haloperidol 5 mg/ml SDV IV/IM 5 MG/ML AMP IV SLOW PU ONE ×2 (05:08→06:14)
[2020-02-13] MEDS ORDERED: cefTRIAXone ADVAN VIAL 1 GM in NS 0.9% 50 ML 50 ML IVPB ONE (05:23)
[2020-02-13] MEDS ORDERED: NS 0.9% 50 ML 50 ML ONE (05:36)
[2020-02-13] MEDS ORDERED: NS 0.9% 1000 ml BAG 1,000 ML IV ONE (05:42)
[2020-02-13 06:21] LABS: Calcium 8.7 mg/dL (8.6-10.3); EGFR African American 5.7 (>60); EGFR Non-African American 4.7 (>60)
[2020-02-13 06:23] LABS: Potassium 5.4 mmol/L (3.5-5.0)
[2020-02-13] MEDS ORDERED: Lidocaine 2% JELLY 6 ML TOPICAL ONE (06:33)
[2020-02-13 06:53] LABS: BUN/Creatinine Ratio 13.9 (8-20)
[2020-02-13 06:57] LABS: Hepatitis B Surface Antigen Nonreactive (Nonreactive)
[2020-02-13 07:12] LABS: Urine Appearance Cloudy; Urine Bilirubin Negative (Negative); Urine Blood 3+ (Negative); Urine Color Yellow; Urine Glucose Negative (Negative); Urine Ketones Negative (Negative); Urine Nitrite Negative (Negative); Urine Protein Negative (Negative); Urine Specific Gravity 1.008 (1.010-1.030); Urine Urobilinogen Negative (Negative)
[2020-02-13 07:14] LABS: Hepatitis B Surface Ab Not Immune (Immune); Hepatitis C Antibody Negative (Negative)
[2020-02-13 07:17] LABS: Urine Bacteria Absent (Absent); Urine Red Blood Cell 3+(>10/hpf) (Absent); Urine White Blood Cell Absent (Absent)
[2020-02-13] MEDS: Heparin 5000 UNITS/ML 1 mL VIAL SUBCUT SCH ×3 (09:42→21:35)
[2020-02-13 16:44] LABS: CO2 Carbon Dioxide 19 mmol/L (22-32); Calcium 8.8 mg/dL (8.6-10.3); Chloride 103 mmol/L (101-111); Sodium 138 mmol/L (135-145)
[2020-02-13 16:45] LABS: Anion Gap 16 mmol/L (2-11)
[2020-02-13 16:50] LABS: BUN/Creatinine Ratio 16.2 (8-20); Blood Urea Nitrogen 116 mg/dL (6-24); EGFR African American 8.8 (>60); EGFR Non-African American 7.3 (>60); Glucose 67 mg/dL (70-100); Phosphorus 6.2 mg/dL (2.5-5.0)
[2020-02-13 18:28] LABS: Magnesium 2.5 mg/dL (1.9-2.7)
[2020-02-13] MEDS: NS 0.45% 1000 ml BAG 1,000 ML IV SCH (21:41)
[2020-02-14] MEDS: Heparin 5000 UNITS/ML 1 mL VIAL SUBCUT SCH ×3 (06:01→22:57)
[2020-02-14] MEDS: NS 0.45% 1000 ml BAG 1,000 ML IV SCH ×3 (06:01→13:29)
[2020-02-14 06:37] LABS: Calcium 8.4 mg/dL (8.6-10.3); Magnesium 2.3 mg/dL (1.9-2.7)
[2020-02-14 06:43] LABS: BUN/Creatinine Ratio 18.4 (8-20); EGFR African American 13.6 (>60); EGFR Non-African American 11.3 (>60); Phosphorus 6.4 mg/dL (2.5-5.0)
[2020-02-14] MEDS: Patiromer POWDER 8.4 GM PAK PO SCH (07:08)
[2020-02-14] MEDS ORDERED: cefTRIAXone ADVAN VIAL 1 GM in NS 0.9% 50 ML 50 ML IVPB SCH (07:30)
[2020-02-14] MEDS ORDERED: Patiromer POWDER 8.4 GM PAK PO SCH (09:00)
[2020-02-14] MEDS ORDERED: Haloperidol 5 mg/ml SDV IV/IM 5 MG/ML AMP ONE ×2 (10:29→21:43)
[2020-02-14] MEDS ORDERED: Haloperidol 5 mg/ml SDV IV/IM 5 MG/ML AMP IV SLOW PU ONE ×3 (10:34→21:41)
[2020-02-15] MEDS ORDERED: Morphine 2 MG/ML SYRINGE IV ONE (00:59)
[2020-02-15] MEDS ORDERED: Morphine 2 MG/ML SYRINGE ONE (01:03)
[2020-02-15] MEDS: NS 0.45% 1000 ml BAG 1,000 ML IV SCH ×2 (01:17→11:02)
[2020-02-15] MEDS: Heparin 5000 UNITS/ML 1 mL VIAL SUBCUT SCH ×3 (06:03→20:27)
[2020-02-15 07:01] LABS: BUN/Creatinine Ratio 26.9 (8-20); Calcium 8.8 mg/dL (8.6-10.3); EGFR African American 44.7 (>60); Magnesium 1.9 mg/dL (1.9-2.7); Potassium 3.9 mmol/L (3.5-5.0)
[2020-02-15] MEDS ORDERED: Magnesium Sulfate IV 1GM/100ML 1 GM/100 ML BAG IV ONE (17:25)
[2020-02-15] MEDS ORDERED: NS 0.45% 1000 ml BAG 1,000 ML IV SCH (17:26)
[2020-02-16] MEDS: Heparin 5000 UNITS/ML 1 mL VIAL SUBCUT SCH ×3 (05:11→21:04)
[2020-02-16 05:46] LABS: ABS Eosinophils 0.2 10^3/ul (0-0.6); ABS Lymphocytes 0.8 10^3/ul (1.0-4.8); ABS Monocytes 0.3 10^3/ul (0-0.8); Eosinophil % 4.4 %; Hematocrit 35 % (42-52); Hemoglobin 11.8 g/dL (14.0-18.0); Lymphocyte % 19.5 %; Mean Corpuscular HGB Conc 34 g/dL (31-36); Mean Corpuscular Hemoglobin 30 pg (27-31); Mean Corpuscular Volume 87 fL (80-94); Mean Platelet Volume 7.3 fL (7.4-10.4); Platelet Count 105 10^3/uL (150-450); Red Blood Count 3.98 10^6 /uL (4.18-5.48); Red Cell Distribution Width 15 % (10-15); White Blood Count 4.3 10^3/uL (3.5-10.8)
[2020-02-16 06:09] LABS: BUN/Creatinine Ratio 22.3 (8-20); Calcium 8.7 mg/dL (8.6-10.3); EGFR African American 74.9 (>60); EGFR Non-African American 61.9 (>60); Magnesium 1.6 mg/dL (1.9-2.7); Phosphorus 2.1 mg/dL (2.5-5.0); Potassium 3.5 mmol/L (3.5-5.0)
[2020-02-16] MEDS ORDERED: Magnesium Sulfate 2 gm BAG 2 GM/50 ML BAG IVPB ONE (15:30)
[2020-02-17 01:54] LABS: BUN/Creatinine Ratio 19.3 (8-20); Calcium 8.7 mg/dL (8.6-10.3); EGFR African American 77.3 (>60); EGFR Non-African American 63.8 (>60); Magnesium 1.8 mg/dL (1.9-2.7); Potassium 3.5 mmol/L (3.5-5.0)
[2020-02-17] MEDS ORDERED: Potassium Chlor 20 meq TAB.ER PO ONE (02:11)
[2020-02-17] MEDS ORDERED: Magnesium Sulfate 2 gm BAG 2 GM/50 ML BAG IVPB ONE (02:11)
[2020-02-17] MEDS: Heparin 5000 UNITS/ML 1 mL VIAL SUBCUT SCH ×3 (05:49→21:30)
[2020-02-17 06:45] LABS: BUN/Creatinine Ratio 18.4 (8-20); Calcium 8.6 mg/dL (8.6-10.3); EGFR African American 82.5 (>60); EGFR Non-African American 68.2 (>60); Magnesium 2.1 mg/dL (1.9-2.7); Phosphorus 1.8 mg/dL (2.5-5.0); Potassium 3.7 mmol/L (3.5-5.0)
[2020-02-18] MEDS: Heparin 5000 UNITS/ML 1 mL VIAL SUBCUT SCH ×3 (05:46→21:04)
[2020-02-18 08:50] LABS: BUN/Creatinine Ratio 15.3 (8-20); Calcium 8.8 mg/dL (8.6-10.3); EGFR African American 87.3 (>60); EGFR Non-African American 72.2 (>60); Magnesium 1.7 mg/dL (1.9-2.7); Potassium 3.6 mmol/L (3.5-5.0)
[2020-02-18] MEDS ORDERED: Magnesium Sulfate 2 gm BAG 2 GM/50 ML BAG IVPB ONE (14:01)
[2020-02-19] MEDS: Heparin 5000 UNITS/ML 1 mL VIAL SUBCUT SCH ×3 (05:15→21:05)
[2020-02-19] MEDS ORDERED: Potassium Chlor 20 meq TAB.ER PO ONE (21:18)
[2020-02-20] MEDS: Heparin 5000 UNITS/ML 1 mL VIAL SUBCUT SCH ×3 (05:19→22:14)
[2020-02-20 07:07] LABS: ABS Eosinophils 0.3 10^3/ul (0-0.6); ABS Lymphocytes 0.9 10^3/ul (1.0-4.8); ABS Monocytes 0.4 10^3/ul (0-0.8); Eosinophil % 4.3 %; Hematocrit 35 % (42-52); Hemoglobin 12.3 g/dL (14.0-18.0); Lymphocyte % 15.5 %; Mean Corpuscular HGB Conc 35 g/dL (31-36); Mean Corpuscular Hemoglobin 31 pg (27-31); Mean Corpuscular Volume 88 fL (80-94); Mean Platelet Volume 8.1 fL (7.4-10.4); Platelet Count 124 10^3/uL (150-450); Red Blood Count 4.02 10^6 /uL (4.18-5.48); Red Cell Distribution Width 15 % (10-15); White Blood Count 6.1 10^3/uL (3.5-10.8)
[2020-02-20 07:25] LABS: Anion Gap 5 mmol/L (2-11); BUN/Creatinine Ratio 16.1 (8-20); Blood Urea Nitrogen 18 mg/dL (6-24); CO2 Carbon Dioxide 28 mmol/L (22-32); Calcium 8.8 mg/dL (8.6-10.3); Chloride 103 mmol/L (101-111); EGFR African American 74.9 (>60); EGFR Non-African American 61.9 (>60); Glucose 93 mg/dL (70-100); Magnesium 1.8 mg/dL (1.9-2.7); Sodium 136 mmol/L (135-145)
[2020-02-20] MEDS ORDERED: Magnesium Sulfate IV 1GM/100ML 1 GM/100 ML BAG IV ONE (07:38)
[2020-02-20 11:00] LABS: % Iron Saturation 20 % (15-55); Iron 48 ug/dL (50-212); Total Iron Binding Capacity 244 mcg/dL (250-450); Transferrin 174 mg/dL (203-362)
[2020-02-20 11:22] LABS: Ferritin 313.3 ng/mL (24-336)
[2020-02-20 11:25] LABS: Folate 11.64 ng/mL (>3.99)
[2020-02-21] MEDS: Heparin 5000 UNITS/ML 1 mL VIAL SUBCUT SCH ×3 (05:50→22:20)
[2020-02-21] MEDS ORDERED: Magnesium Sulfate IV 1GM/100ML 1 GM/100 ML BAG IV ONE (19:58)
[2020-02-21] MEDS ORDERED: Senna TAB 8.6 mg TAB PO PRN (22:18)
[2020-02-22] MEDS: Heparin 5000 UNITS/ML 1 mL VIAL SUBCUT SCH ×2 (05:32→13:49)
[2020-02-22 12:15] VITALS: BP 101/56
== END 2020-02-22 14:10 | DRG 683 ==
LOC: ED 02:31 → MEDTELE 06:20
PROVIDERS: ADMIT Internal Medicine; ATTEND Hospitalist